=== PATIENT | female | born 1990 | race Two or more races ===

== ENCOUNTER 2018-11-02 20:53 | Emergency (ER) | payer BC ==
[~2018-11-02] VITALS: Ht 165.1 cm; Wt 71.2 kg
[2018-11-03] MEDS ORDERED: diphenhdrAMINE HCL 50 MG/1 ML VL IV ONE (03:30)
[2018-11-03] MEDS ORDERED: methylPREDNISolone SOD SUCC 125 MG/2 ML VL IV ONE (03:30)
[2018-11-03 03:31] VITALS: BP 103/60
[2018-11-03] MEDS ORDERED: DexAMETHasone SOD PHOS 10MG/1ML VIAL INJ IM ONE (04:00)
== END 2018-11-03 04:49 | disposition home or self-care (01) ==
LOC: ER 21:02
DX: L20.9 Atopic dermatitis, unspecified (principal); Z90.710 Acquired absence of both cervix and uterus
CPT/HCPCS: 96372; 96374; 96375; 99283; J1100; J1200; J2930